=== PATIENT | male | born 1980 | race Caucasian/White ===

== ENCOUNTER 2017-02-23 22:48 | Inpatient (IN) | payer OTHER ==
[~2017-02-23] VITALS: Ht 185.4 cm; Wt 87.2 kg
[2017-02-23 22:54] VITALS: BP 155/93
[2017-02-23 23:46] LABS: BASO # 0.1 10*3/uL (0.0-0.1); BASO % 0.7 % (0.0-1.0); EOS # 0.4 10*3/uL (0.0-0.4); EOS % 3.8 % (1.0-4.0); HEMATOCRIT 43.6 % (42.0-52.0); HEMOGLOBIN 14.8 g/dl (14.0-18.0); LYMPH # 3.4 10*3/uL (1.3-4.4); LYMPH % 37.5 % (27.0-41.0); MEAN CELL VOLUME 89.7 fl (80.0-94.0); MEAN CORPUSCULAR HGB 30.5 pg (27.0-31.0); MEAN CORPUSCULAR HGB CONC 33.9 g/dl (33.0-37.0); MEAN PLATELET VOLUME 9.8 fl (9.6-12.3); MONO # 0.5 10*3/uL (0.1-1.0); MONO % 5.5 % (3.0-9.0); NEUT # 4.8 10*3/uL (2.3-7.9); NEUT % 52.2 % (47.0-73.0); PLATELET COUNT AUTOMATED 202 10*3/uL (130-400); RED BLOOD COUNT 4.86 10*6/uL (4.50-5.90); RED CELL DISTRI WIDTH 12.5 % (0-14.5); WHITE BLOOD COUNT 9.1 10*3/uL (4.8-10.8)
[2017-02-24 00:01] LABS: ALBUMIN 3.7 gm/dl (3.1-4.5); ALKALINE PHOSPHATASE 68 U/L (45-117); BUN 12 mg/dl (7-24); CHLORIDE 105 mmol/L (98-107); CREATININE 0.73 mg/dL (0.70-1.30); POTASSIUM 4.5 mmol/L (3.5-5.1); SGOT/AST 20 IU/L (3-35); SGPT/ALT 35 U/L (12-78); SODIUM 139 mmol/L (136-145); TOTAL PROTEIN 7.4 gm/dL (6.4-8.2)
[2017-02-24 00:04] LABS: BILIRUBIN NEGATIVE (NEGATIVE); BLOOD NEGATIVE (NEGATIVE); CLARITY CLEAR (CLEAR); COLOR YELLOW (YELLOW); GLUCOSE NEGATIVE (NEGATIVE); KETONE NEGATIVE (NEGATIVE); LEUKO ESTERASE NEGATIVE (NEGATIVE); NITRITE NEGATIVE (NEGATIVE); PH 5.5 (5.0-9.0); SPECIFIC GRAVITY >= 1.030 (1.005-1.030); UROBILINOGEN 0.2 E.U./dl (0.2-1.0)
[2017-02-24 00:15] VITALS: BP 135/77
[2017-02-24 00:15] LABS: URINE AMPHETAMINES < 1000 (1000ng/ml); URINE BARBITURATES < 200 (200ng/ml); URINE BENZODIAZEPINES < 200 (200ng/ml); URINE CANNABINOIDS (THC) < 50 (50ng/ml); URINE COCAINE < 300 (300ng/ml); URINE METHADONE < 300 (300ng/ml); URINE OPIATES > 300 (300ng/ml)
--- NOTE | 2017-02-24 00:15 | NUR ---
Time: 14 A 36 year old MALE admitted to under services of MELIZA BANGURA DO. Pt. arrived via bed from ER. Chief complaint: OPIATE WITHDRAWAL. ANA MARTINS
[2017-02-24 00:18] LABS: URINE PHENCYCLIDINE < 25 (25ng/ml)
[2017-02-24 00:32] LABS: WBC 0-2 wbc/hpf (0-5)
--- NOTE | 2017-02-24 00:33 | NUR ---
PRN TRAZADONE AND VISTARIL GIVEN FOR PT COMPLAINTS OF SLEEPLESSNESS AND ANXIETY. CALL LIGHT WITHIN REACH, WILL MONITOR
--- NOTE | 2017-02-24 01:30 | NUR ---
PRN MEDICATION APPEARS EFFECTIVE, PT SLEEPING
--- NOTE | 2017-02-24 05:07 | NUR ---
PRN REQUIP AND ROBAXIN GIVEN FOR PT COMPLAINTS OF RESTLESS LEGS AND MUSCLE ACHES. CALL LIGHT WITHIN REACH, [place]
--- NOTE | 2017-02-24 07:45 | NUR ---
PT COMPLAINS OF ANXIETY, PRN GIVEN. SEE MAR
[2017-02-24 08:00] VITALS: BP 133/90
--- NOTE | 2017-02-24 08:45 | NUR ---
PT STATES ANXIETY MEDICAION WAS NOT HELPFUL, PHYSICIAN AWARE. NO NEW ORDERS GIVEN.
[2017-02-24 12:00] VITALS: BP 140/98
--- NOTE | 2017-02-24 12:58 | NUR ---
PT COMPLAINS OF ANXIETY AND MUSCLE ACHES, PRN GIVEN. SEE MAR
[2017-02-24 16:00] VITALS: BP 115/75
--- NOTE | 2017-02-24 16:43 | NUR ---
PT CONTINUES TO COMPLAIN OF WITHDRAWL SYMPTOMS, STATES ANXIETY, RESTLESSNESS. NO PRN ARE AVAILABLE AT THIS TIME. PT AWARE AND STATES HE IS WILLING TO TRY AND WAIT IT OUT AND DOES NOT WANT TO LEAVE AMA HOWEVER IT IS "ALMOST GETTING TO THAT POINT". WILL CONTINUE TO MONITOR PT S/S AND NEEDS AND WILL PROVIDE PRN MEDICAIONS AVAILABLE
--- NOTE | 2017-02-24 16:50 | NUR ---
PT DRY HEAVING AND VOMITING FOR APPROXIMATLEY 10 MINUTES, CALLED PHYSICIAN AND ORDER FOR IV START AND ONE DOSE OF IV ZOFRAN. PHYSICIAN AWARE THAT PATIENT STATES WITHDRAWL SYMPTOMS HAVEN'T BEEN MANAGED ALL DAY AND THAT HE CONTINUES TO FEEL RESTLESS, OVERALL ACHEY FEELING WELL ANXIETY.
--- NOTE | 2017-02-24 17:10 | NUR ---
PT IV STARTED IN RIGHT FA ON ONE ATTEMPT, GOOD BLOOD RETURN, TOLERATED WELL. IV ZOFRAN GIVEN. PRN MOTRIN AND REQUIP GIVEN. SEE MAR. OFFERED MOM HOWEVER PATIENT STATED AT THIS TIME HE DIDN'T THINK HE COULD KEEP IT DOWN.
--- NOTE | 2017-02-24 18:54 | NUR ---
PT STATES ANXIETY, PRN GIVEN. SEE MAR PT STATES NAUSEA HAS IMPROVED, OVERALL SLIGHTLY LESS WITHDRAWL SYMPTOMS AT THIS TIME.
[2017-02-24 20:00] VITALS: BP 124/75
--- NOTE | 2017-02-24 20:27 | NUR ---
PRN BENTYL GIVEN FOR STOMACH CRAMPS.
--- NOTE | 2017-02-24 20:27 | NUR ---
PRN ROBAXIN GIVEN FOR 7/10 BODY ACHES.
--- NOTE | 2017-02-24 21:27 | NUR ---
PRN ROBAXIN EFFECTIVE, PT REPORTS PAIN 3/10.
--- NOTE | 2017-02-24 21:27 | NUR ---
PRN BENTYL EFFECTIVE FOR STOMACH CRAMPS, PT DENIES STOMACH PAIN.
--- NOTE | 2017-02-24 21:43 | NUR ---
PRN TRAZADONE GIVEN FOR SLEEP.
--- NOTE | 2017-02-24 22:25 | NUR ---
PRN ROBAXIN GIVEN FOR GENERALIZED BODY ACHES, 09/13.
--- NOTE | 2017-02-24 22:43 | NUR ---
prn trazadone appears effective,pt is resting comfortably.
[2017-02-25] VITALS: BP 110/63
--- NOTE | 2017-02-25 05:51 | NUR ---
prn vistaril given for pt report of anxiety.
[2017-02-25 08:00] VITALS: BP 138/82
--- NOTE | 2017-02-25 08:00 | NUR ---
ASSESSMENT COMPLETE. PT STATES FEELS " A LITTLE BETTER" THAN YESTERDAY. RESTING QUIETLY IN BED. PT STATES NO NEEDS AT THIS TIME. WILL CONTINUE TO MONITOR FOR NEEDS
[2017-02-25 12:00] VITALS: BP 136/80
--- NOTE | 2017-02-25 14:18 | NUR ---
resting quietly in bed. no needs stated at this time
--- NOTE | 2017-02-25 15:31 | NUR ---
pt complains of headache and nausea, motrin and zofran given.see mar.
[2017-02-25 16:00] VITALS: BP 124/86
--- NOTE | 2017-02-25 16:30 | NUR ---
PT STATES PRN HELPFUL. COMPLAINS OF HEADACHE. REQUESTING COFFEE
--- NOTE | 2017-02-25 18:12 | NUR ---
STATES COFFEE HELPFUL FOR HEADACHE
[2017-02-25 20:00] VITALS: BP 136/82
--- NOTE | 2017-02-25 20:30 | NUR ---
DR NUNES CALLED TO REQUEST NICOTROL INHALER AT PT REQUEST FOR NICOTINE CRAVINGS.
--- NOTE | 2017-02-25 20:56 | NUR ---
PRN PAIN MEDS, MOTRIN AND ROBAXIN GIVEN FOR PT REPORT 6/10 GENERALIZED MUSCLE ACHES.
--- NOTE | 2017-02-25 20:56 | NUR ---
PRN REQUIP GIVEN FOR PT REPORT OF RESTLESS LEG.
--- NOTE | 2017-02-25 20:56 | NUR ---
PRN VISTARIL GIVEN FOR PT REPORT OF ANXIETY.
--- NOTE | 2017-02-25 20:56 | NUR ---
PRN TRAZADONE GIVEN FOR PT REPORT OF SLEEPLESSNESS.
--- NOTE | 2017-02-25 21:56 | NUR ---
PRN PAIN MEDS MOTRIN AND ROBAXIN EFFECTIVE, PT DENIES PAIN.
--- NOTE | 2017-02-25 21:56 | NUR ---
PRN NICOTROL EFFECTIVE, PT REPORTS IT IS HELPING WITH HIS SMOKING CRAVINGS.
--- NOTE | 2017-02-25 21:56 | NUR ---
PRN VISTARIL EFFECTIVE, PT REPORTS ANXIETY IS IMPROVED.
--- NOTE | 2017-02-25 21:56 | NUR ---
PRN REQIPT EFFECTIVE, PT DENIES RESTLESSNESS IN HIS LEGS.
--- NOTE | 2017-02-25 21:56 | NUR ---
PRN TRAZADONE EFFECTIVE FOR SLEEP, PT RESTING COMFORTABLY.
--- NOTE | 2017-02-25 22:05 | NUR ---
PRN NICOTROL GIVEN PER PT REQUEST.
[2017-02-26] VITALS: BP 116/88
--- NOTE | 2017-02-26 05:10 | NUR ---
PRN ROBAXIN GIVEN FOR GENERALIZED BODY ACHES, PT RATES 3/10.
--- NOTE | 2017-02-26 05:11 | NUR ---
PRN VISTARIL GIVEN PER PT REQUEST FOR ANXIETY.
[2017-02-26 06:08] LABS: CREATININE 0.97 mg/dL (0.70-1.30)
[2017-02-26 06:12] LABS: BASO % 0.4 % (0.0-1.0); EOS # 0.2 10*3/uL (0.0-0.4); EOS % 1.8 % (1.0-4.0); HEMATOCRIT 44.5 % (42.0-52.0); HEMOGLOBIN 15.1 g/dl (14.0-18.0); LYMPH # 3.2 10*3/uL (1.3-4.4); LYMPH % 33.1 % (27.0-41.0); MEAN CELL VOLUME 86.1 fl (80.0-94.0); MEAN CORPUSCULAR HGB 29.2 pg (27.0-31.0); MEAN CORPUSCULAR HGB CONC 33.9 g/dl (33.0-37.0); MEAN PLATELET VOLUME 9.8 fl (9.6-12.3); MONO # 0.6 10*3/uL (0.1-1.0); MONO % 6.2 % (3.0-9.0); NEUT # 5.6 10*3/uL (2.3-7.9); NEUT % 58.2 % (47.0-73.0); PLATELET COUNT AUTOMATED 222 10*3/uL (130-400); RED BLOOD COUNT 5.17 10*6/uL (4.50-5.90); RED CELL DISTRI WIDTH 12.2 % (0-14.5); WHITE BLOOD COUNT 9.7 10*3/uL (4.8-10.8)
[2017-02-26 08:00] VITALS: BP 126/82
--- NOTE | 2017-02-26 13:31 | NUR ---
PT WILL DISCHARGE AFTER LAST DOSE OF SUBUTEX TONIGHT.
--- NOTE | 2017-02-26 15:13 | NUR ---
C/O PAIN TO BACK OF 11/13. MOTRIN GIVEN AT THIS TIME PER REQUEST. WILL CONT TO MONITOR. CALL LIGHT IN REACH.
--- NOTE | 2017-02-26 15:14 | NUR ---
PER SPARKLE PT WILL HAVE LAST DOSE OF SUBUTEX AT 6PM AND THEN CAN DISCHARGE.
[2017-02-26 16:00] VITALS: BP 135/89
--- NOTE | 2017-02-26 16:13 | NUR ---
EBONY EFF. WILL CONT TO MONITOR. CALL LIGHT IN REACH.
--- NOTE | 2017-02-26 17:55 | NUR ---
PT DISCHARGED AT THIS TIME. LAST DOSE OF SUBUTEX ADMINISTERED. IV REMOVED AND PRESSURE DRESSING APPLIED. VERBALIZED UNDERSTANDING OF DISCHARGE INSTRUCTIONS.
== END 2017-02-26 17:55 | disposition home or self-care (01) | DRG 897 ==
LOC: ED 22:48 → EDHOLD 23:37 → 4E 23:37
PROVIDERS: Physician Assistant; Student in an Organized Health Care Education/Training Program; ADMIT Internal Medicine
DX: F11.23 Opioid dependence with withdrawal (principal); F13.10 Sedative, hypnotic or anxiolytic abuse, uncomplicated; F41.1 Generalized anxiety disorder; R03.0 Elevated blood-pressure reading, without diagnosis of hypertension; Z72.0 Tobacco use; Z71.6 Tobacco abuse counseling; Z88.2 Allergy status to sulfonamides; Z90.49 Acquired absence of other specified parts of digestive tract; Z86.19 Personal history of other infectious and parasitic diseases; Z81.8 Family history of other mental and behavioral disorders; Z82.49 Family history of ischemic heart disease and other diseases of the circulatory system; Z83.3 Family history of diabetes mellitus